=== PATIENT | female | born 1965 | race Caucasian/White ===

== ENCOUNTER 2017-10-31 17:45 | Inpatient (IN) | payer MEDICAID ==
[2017-10-31] MEDS ORDERED: Aspirin 325 mg EC Tablets PO STA (19:23)
[2017-10-31 19:37] LABS: BASO % 0.3 % (0.0-2.0); EOS % 0.5 % (0.0-4.0); HEMOGLOBIN 14.5 g/dL (11.0-16.0); LYMPH # 2.8 K/uL (1.0-4.3); LYMPH % 36.8 % (20.0-40.0); MEAN CELL VOLUME 85.1 fL (81.0-99.0); MEAN CORPUSCULAR HEMOGLOBIN 29.2 pg (27.0-31.0); MEAN CORPUSCULAR HGB CONC 34.3 g/dL (33.0-37.0); MEAN PLATELET VOLUME 8.8 fL (7.2-11.7); MONO # 0.6 K/uL (0.0-0.8); MONO % 7.4 % (0.0-10.0); NEUT # 4.1 K/uL (1.8-7.0); NRBC % 0.1 % (0.0-2.0); RBC 4.96 Mil/uL (3.80-5.20); RED CELL DISTRIBUTION WIDTH 13.3 % (11.5-14.5); WHITE BLOOD COUNT 7.5 K/uL (4.8-10.8)
[2017-10-31 19:47] LABS: INR 0.9; PROTHROMBIN TIME 10.6 SECONDS (9.7-12.2)
[2017-10-31 19:49] LABS: ALB/GLOB RATIO 1.2 (1.0-2.1); ALBUMIN 4.5 g/dL (3.5-5.0); ALT/SGPT 20 U/L (9-52); AST/SGOT 19 U/L (14-36); BLOOD UREA NITROGEN 9 mg/dL (7-17); CALCIUM 8.8 mg/dl (8.6-10.4); GFR AFRICAN-AMERICAN > 60; GFR NON-AFRICAN AMERICAN > 60; LIPASE 51 U/L (23-300)
[2017-10-31 20:01] LABS: B-TYPE NATRIURETIC PEPTIDE 35.5 pg/mL (0-900)
[2017-10-31] MEDS ORDERED: Nitroglycerin 2% Ointment Foilpak UD TOP STA (20:33)
--- NOTE | 2017-10-31 20:42 | C.PDOC ---
Time Seen by Provider: 10/31/17 18:42 Chief Complaint (Nursing): Chest Pain History Per: Patient, Family Onset/Duration Of Symptoms: Days (2-3), Intermittent Episodes Current Symptoms Are (Timing): Still Present Severity: Moderate Quality: Pressure Associated Symptoms: Nausea, Dyspnea Modifying Factors: Other Indicated Below Exacerbating Factors: Exertion Alleviating Factors: None Additional History Per: Prior Records Past Medical History Reviewed: Historical Data, Nursing Documentation, Vital Signs Vital Signs: Last Vital Signs Temp 97.5 F L 10/31/17 18:16 Pulse 74 10/31/17 18:16 Resp 20 10/31/17 18:16 BP 131/82 10/31/17 18:16 Pulse Ox 98 10/31/17 18:16 - Medical History PMH: No Chronic Diseases Surgical History: No Surg Hx Family History: States: Unknown Family Hx - Social History Hx Tobacco Use: No Hx Alcohol Use: No Hx Substance Use: No - Immunization History Hx Tetanus Toxoid Vaccination: No Hx Influenza Vaccination: No Hx Pneumococcal Vaccination: No Review Of Systems Except As Marked, All Systems Reviewed And Found Negative. Constitutional: Negative for: Fever, Weakness Cardiovascular: Positive for: Chest Pain Respiratory: Positive for: SOB with Excertion. Negative for: Hemoptysis Gastrointestinal: Negative for: Vomiting Musculoskeletal: Negative for: Neck Pain, Leg Pain Skin: Negative for: Rash Neurological: Negative for: Weakness, Numbness Physical Exam - Physical Exam Appears: Non-toxic, No Acute Distress Skin: Normal Color, Warm, Dry, No Rash Head: Atraumatic, Normacephalic Eye(s): bilateral: Normal Inspection, PERRL, EOMI Neck: Normal ROM, Supple Cardiovascular: Rhythm Regular Respiratory: Normal Breath Sounds, No Accessory Muscle Use Gastrointestinal/Abdominal: Soft Back: No CVA Tenderness Extremity: Normal ROM, No Pedal Edema, No Calf Tenderness Neurological/Psych: Oriented x3, Normal Motor, Normal Sensation ED Course And Treatment - Laboratory Results Result Diagrams: 10/31/17 19:33 10/31/17 19:33 Lab Interpretation: No Acute Changes ECG: Interpreted By Me, Viewed By Me ECG Rhythm: Sinus Rhythm ECG Interpretation: No Acute Changes Rate From EC O2 Sat by Pulse Oximetry: 98 Pulse Ox Interpretation: Normal - Radiology CXR: Interpreted by Me, Viewed By Me CXR Interpretation: Yes: Cardiomegaly Progress - Interventions Interventions:: Observation - Medications Administered Oral: Aspirin - Data Reviewed Data Reviewed: Lab, Diagnostic imaging, EKG, Old records - Patient Status Patient status: Partially improved - Continuity of Care Discussed patient case with:: Patient, Family-HIPPA compliant, ED Nurse, On- call PMD-pt unassigned - Patient Plan Patient Plan: Admission, Telemetry Disposition Discussed With : Kobi Chin Comment: He accepted pt on hospitalist service. Doctor Will See Patient In The: Hospital Counseled Patient/Family Regarding: Studies Performed, Diagnosis - Disposition Disposition: HOSPITALIZED Disposition Time: 20:42 Condition: FAIR - Clinical Impression Clinical Impression: Exertional chest pain, Cardiomegaly
[2017-10-31] MEDS ORDERED: Nitroglycerin 2% Ointment Foilpak UD TOP ONE (20:48)
[2017-10-31] MEDS ORDERED: Nitroglycerin 2% Ointment Foilpak UD TOP SCH (21:45)
[2017-10-31] MEDS ORDERED: Iodixanol 320 MG/ML 100 ML BOTTLE IV ONE (21:50)
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
--- NOTE | 2017-10-31 22:57 | CT ---
EXAM: CT Angiography Chest With Intravenous Contrast CLINICAL HISTORY: 52 years old, female; Pain; Chest pain; Type not specified; Additional info: Positive d dimer TECHNIQUE: Axial computed tomographic angiography images of the chest with intravenous contrast using pulmonary embolism protocol. All CT scans at this facility use one or more dose reduction techniques, viz.: automated exposure control; ma/kV adjustment per patient size (including targeted exams where dose is matched to indication; i.e. head); or iterative reconstruction technique. MIP reconstructed images were created and reviewed. Coronal and sagittal reformatted images were created and reviewed. CONTRAST: 100 mL of visispaque 320 administered intravenously. COMPARISON: No relevant prior studies available. FINDINGS: Pulmonary arteries: No pulmonary embolism. Aorta: No acute findings. No thoracic aortic aneurysm. Lungs: 4 mm subpleural pulmonary nodule in the right mid lung image 88 series 2. No mass. No consolidation. Pleural space: Unremarkable. No significant effusion. No pneumothorax. Heart: Unremarkable. No cardiomegaly. No significant pericardial effusion. No evidence of RV dysfunction. Bones/joints: No acute fracture. No dislocation. Soft tissues: Unremarkable. Lymph nodes: Unremarkable. No enlarged lymph nodes. IMPRESSION: 4 mm right mid lung pulmonary nodule. For low-risk patients, no follow-up is necessary. For high-risk patients (smoking history or other known risk factors) an optional chest CT at 12 months could be performed. No pulmonary embolism.
[2017-10-31 22:59] VITALS: O2SAT 96
[2017-11-01 07:29] LABS: BASO % 0.5 % (0.0-2.0); EOS % 0.4 % (0.0-4.0); HEMOGLOBIN 13.4 g/dL (11.0-16.0); LYMPH # 2.3 K/uL (1.0-4.3); LYMPH % 35.3 % (20.0-40.0); MEAN CELL VOLUME 84.8 fL (81.0-99.0); MEAN CORPUSCULAR HEMOGLOBIN 29.7 pg (27.0-31.0); MEAN PLATELET VOLUME 8.7 fL (7.2-11.7); MONO # 0.5 K/uL (0.0-0.8); MONO % 8.4 % (0.0-10.0); NEUT # 3.6 K/uL (1.8-7.0); NEUT % 55.4 % (50.0-75.0); NRBC % 0.1 % (0.0-2.0); RBC 4.52 Mil/uL (3.80-5.20); RED CELL DISTRIBUTION WIDTH 13.4 % (11.5-14.5); WHITE BLOOD COUNT 6.5 K/uL (4.8-10.8)
[2017-11-01 07:41] VITALS: BP 134/85; RESP 18; TEMP 97.9
--- NOTE | 2017-11-01 07:48 | CP.PCM.PN ---
Subjective - Date & Time of Evaluation Date of Evaluation: 11/01/17 Time of Evaluation: 07:30 - Subjective Subjective: Medicine progress note for Dr. Campa Patient seen and examined. Patient reports no chest pain at this time. Patient denies having any acute complaints at this time. Objective - Vital Signs/Intake and Output Vital Signs (last 24 hours): Temp Pulse Resp BP Pulse Ox 97.9 F 76 18 134/85 96 11/01/17 07:15 11/01/17 07:15 11/01/17 07:15 11/01/17 07:15 11/01/17 07:15 - Medications Medications: Current Medications Aspirin (Aspirin Chewable) 81 mg PO DAILY [facility] Famotidine (Pepcid) 20 mg PO DAILY [facility] Heparin Sodium (Porcine) (Heparin) 5,000 units SC Q8 [facility] Last Admin: 11/01/17 05:07 Dose: 5,000 units Lactulose (Enulose) 20 gm PO HS [facility] Last Admin: 10/31/17 22:33 Dose: Not Given Lisinopril (Zestril) 5 mg PO DAILY [facility] Nitroglycerin (Nitro-Bid 2% Oint) 1 ea TOP Q12H [facility] Last Admin: 10/31/17 22:25 Dose: Not Given Rosuvastatin Calcium (Crestor) 5 mg PO HS [facility] Last Admin: 10/31/17 22:33 Dose: 5 mg - Labs Labs: 11/01/17 07:10 10/31/17 19:33 PT 10.6 SECONDS (9.7-12.2) 10/31/17 19:33 INR 0.9 10/31/17 19:33 APTT 31 SECONDS (21-34) 10/31/17 19:33 - Constitutional Appears: No Acute Distress - Head Exam Head Exam: ATRAUMATIC, NORMOCEPHALIC - Eye Exam Eye Exam: EOMI, Normal appearance - ENT Exam ENT Exam: Mucous Membranes Moist - Respiratory Exam Respiratory Exam: Clear to Ausculation Bilateral, NORMAL BREATHING PATTERN. absent: Rales, Rhonchi, Wheezes - Cardiovascular Exam Cardiovascular Exam: REGULAR RHYTHM, +S1, +S2 - GI/Abdominal Exam GI & Abdominal Exam: Soft, Normal Bowel Sounds - Extremities Exam Extremities Exam: absent: Pedal Edema, Tenderness - Neurological Exam Neurological Exam: Alert, Awake, Oriented x3 - Psychiatric Exam Psychiatric exam: Normal Affect, Normal Mood - Skin Skin Exam: Dry, Warm Assessment and Plan - Assessment and Plan (Free Text) Plan: Chest pain Reproducible on admission Monitor on telemetry troponin negative x3 EKG: NSR @ 74bpm HgA1c unremarkable lipid panel shows elevated triglycerides 296, Total cholesterol 239, LDL 142, HDL 33 aspirin 325mg given in ED ASA 81 mg daily Nitro bid 2% oint q12h Crestor 5mg po HS Lisinopril 5mg po daily f/u echo Cardio Consulted, Dr. Tamir Fernandez, help appreciated Elevated D-Dimer D-Dimer: 244 CTA- no PE, 4mm right mid lung pulmonary module Constipation Lactulose 20mg po HS Prophylaxis Heparin 5000u sc q8h, scds Pepcid 20mg po daily Heart Healthy Diet
[2017-11-01 08:27] VITALS: PULSE 77
--- NOTE | 2017-11-01 10:26 | RAD ---
HISTORY: chest pain COMPARISON: None available. TECHNIQUE: Chest, one view. FINDINGS: Examination limited by habitus. LUNGS: No focal consolidation. Please note that chest x-ray has limited sensitivity for the detection of pulmonary masses. PLEURA: No significant pleural effusion identified. No definite pneumothorax . CARDIOVASCULAR: Cardiomegaly. Ectatic aorta. OSSEOUS STRUCTURES: Degenerative changes. VISUALIZED UPPER ABDOMEN: Elevation of the right hemidiaphragm. OTHER FINDINGS: None. IMPRESSION: Cardiomegaly. Ectatic aorta.
[2017-11-01] MEDS ORDERED: Nitroglycerin 2% Ointment Foilpak UD TOP SCH (10:45)
--- NOTE | 2017-11-01 13:05 | CP.PCM.PN ---
Subjective - Date & Time of Evaluation Date of Evaluation: 11/01/17 Time of Evaluation: 13:03 - Subjective Subjective: no chest pain. asymptomatic. Objective - Vital Signs/Intake and Output Vital Signs (last 24 hours): Temp Pulse Resp BP Pulse Ox 97.9 F 77 18 134/85 96 11/01/17 07:15 11/01/17 07:55 11/01/17 07:15 11/01/17 07:15 11/01/17 07:15 - Medications Medications: Current Medications Aspirin (Aspirin Chewable) 81 mg PO DAILY [facility] Last Admin: 11/01/17 10:20 Dose: 81 mg Famotidine (Pepcid) 20 mg PO DAILY [facility] Last Admin: 11/01/17 10:19 Dose: 20 mg Heparin Sodium (Porcine) (Heparin) 5,000 units SC Q8 [facility] Last Admin: 11/01/17 05:07 Dose: 5,000 units Lactulose (Enulose) 20 gm PO [facility] Last Admin: 10/31/17 22:33 Dose: Not Given Lisinopril (Zestril) 5 mg PO DAILY [facility] Last Admin: 11/01/17 10:19 Dose: 5 mg Nitroglycerin (Nitro-Bid 2% Oint) 1 ea TOP Q12H [facility] Last Admin: 11/01/17 10:43 Dose: 1 ea Rosuvastatin Calcium (Crestor) 5 mg PO [facility] Last Admin: 10/31/17 22:33 Dose: 5 mg - Labs Labs: 11/01/17 07:10 10/31/17 19:33 PT 10.6 SECONDS (9.7-12.2) 10/31/17 19:33 INR 0.9 10/31/17 19:33 APTT 31 SECONDS (21-34) 10/31/17 19:33 - Constitutional Appears: No Acute Distress - ENT Exam ENT Exam: Mucous Membranes Moist, Normal Exam - Neck Exam Neck Exam: Full ROM, Normal Inspection. absent: Lymphadenopathy - Respiratory Exam Respiratory Exam: Clear to Ausculation Bilateral, NORMAL BREATHING PATTERN - Cardiovascular Exam Cardiovascular Exam: REGULAR RHYTHM, +S1, +S2. absent: Murmur - GI/Abdominal Exam GI & Abdominal Exam: Soft, Normal Bowel Sounds. absent: Tenderness Assessment and Plan - Assessment and Plan (Free Text) Assessment: atypical chest pain. ekg nsr, troponin neg. Plan: cardiac stable. ok for discharge. stress test as out patient.
--- NOTE | 2017-11-01 13:50 | CP.PCM.DIS ---
<Santosh Lancaster S - Last Filed: 11/01/17 14:18> Provider - Provider Date of Admission: 10/31/17 20:43 Attending physician: Dr. Campa Consults: Cardiology: Dr. Britt Fernandez Time Spent in preparation of Discharge (in minutes): 40 Diagnosis - Discharge Diagnosis (1) Chest pain, rule out acute myocardial infarction Status: Acute Priority: High (2) Hypertension Status: Acute Priority: High (3) GERD (gastroesophageal reflux disease) Status: Suspected Priority: High (4) Hypercholesteremia Status: Acute Priority: High Hospital Course - Lab Results Lab Results: Most Recent Lab Values WBC 6.5 K/uL (4.8-10.8) 11/01/17 07:10 RBC 4.52 Mil/uL (3.80-5.20) 11/01/17 07:10 Hgb 13.4 g/dL (11.0-16.0) 11/01/17 07:10 Hct 38.3 % (34.0-47.0) 11/01/17 07:10 MCV 84.8 fL (81.0-99.0) 11/01/17 07:10 MCH 29.7 pg (27.0-31.0) 11/01/17 07:10 MCHC 35.0 g/dL (33.0-37.0) 11/01/17 07:10 RDW 13.4 % (11.5-14.5) 11/01/17 07:10 Plt Count 290 K/uL (130-400) 11/01/17 07:10 MPV 8.7 fL (7.2-11.7) 11/01/17 07:10 Neut % (Auto) 55.4 % (50.0-75.0) 11/01/17 07:10 Lymph % (Auto) 35.3 % (20.0-40.0) 11/01/17 07:10 Shannon % (Auto) 8.4 % (0.0-10.0) 11/01/17 07:10 Eos % (Auto) 0.4 % (0.0-4.0) 11/01/17 07:10 Baso % (Auto) 0.5 % (0.0-2.0) 11/01/17 07:10 Neut # (Auto) 3.6 K/uL (1.8-7.0) 11/01/17 07:10 Lymph # (Auto) 2.3 K/uL (1.0-4.3) 11/01/17 07:10 Shannon # (Auto) 0.5 K/uL (0.0-0.8) 11/01/17 07:10 Eos # (Auto) 0.0 K/uL (0.0-0.7) 11/01/17 07:10 Baso # (Auto) 0.0 K/uL (0.0-0.2) 11/01/17 07:10 PT 10.6 SECONDS (9.7-12.2) 10/31/17 19:33 INR 0.9 10/31/17 19:33 APTT 31 SECONDS (21-34) 10/31/17 19:33 D-Dimer, Quantitative 244 ng/mlDDU (0-243) H 10/31/17 19:33 Sodium 141 mmol/L (132-148) 10/31/17 19:33 Potassium 3.8 mmol/L (3.6-5.2) 10/31/17 19:33 Chloride 100 mmol/L (98-107) 10/31/17 19:33 Carbon Dioxide 27 mmol/L (22-30) 10/31/17 19:33 Anion Gap 17 (10-20) 10/31/17 19:33 BUN 9 mg/dL (7-17) 10/31/17 19:33 Creatinine 0.6 mg/dL (0.7-1.2) L 10/31/17 19:33 Est GFR ( Amer) > 60 10/31/17 19:33 Est GFR (Non-Af Amer) > 60 10/31/17 19:33 Random Glucose 79 mg/dL (65-105) 10/31/17 19:33 Hemoglobin A1c 5.4 % (4.2-6.5) 11/01/17 07:10 Calcium 8.8 mg/dl (8.6-10.4) 10/31/17 19:33 Phosphorus 4.8 mg/dL (2.5-4.5) H 11/01/17 07:09 Magnesium 2.1 mg/dL (1.6-2.3) 11/01/17 07:09 Total Bilirubin 1.1 mg/dL (0.2-1.3) 10/31/17 19:33 AST 19 U/L (14-36) 10/31/17 19:33 ALT 20 U/L (9-52) 10/31/17 19:33 Alkaline Phosphatase 80 U/L (38-126) 10/31/17 19:33 Troponin I < 0.0120 ng/mL (0.00-0.120) 11/01/17 07:09 NT-Pro-B Natriuret Pep 35.5 pg/mL (0-900) 10/31/17 19:33 Total Protein 8.3 g/dL (6.3-8.3) 10/31/17 19:33 Albumin 4.5 g/dL (3.5-5.0) 10/31/17 19:33 Globulin 3.8 gm/dL (2.2-3.9) 10/31/17 19:33 Albumin/Globulin Ratio 1.2 (1.0-2.1) 10/31/17 19:33 Triglycerides 296 mg/dL (0-149) H 11/01/17 07:09 Cholesterol 239 mg/dL (0-199) H 11/01/17 07:09 LDL Cholesterol Direct 142 mg/dL (0-129) H 11/01/17 07:09 HDL Cholesterol 33 mg/dL (30-70) 11/01/17 07:09 Lipase 51 U/L (23-300) 10/31/17 19:33 - Hospital Course Hospital Course: Initial Note: "Patient is a 52 year old female with past medical history of HTN (was told she could stop her antihypertensives 6 months ago) who presents today for left sided chest pain that started two days ago. Patient was at rest when the pain started and she describes it as a pressure which was persistent and got as bad as 10/10. Patient says she is not short of breath, but when the pain is worst it makes it difficult to take a full breath. Patient says the pain radiates to the left inner arm. Patient has no tingling, loss of sensation, or weakness in the arm. Patient also has been having some nausea, but no vomiting. Patient has been able to eat, but has had a decreased appetite. Patient also has epigastric pain and lower abdominal pain which she rates 5/10. Patient feels constipated and has not had a bowel movement in 2 days. This morning patient's chest pain increased and she had an episode where she felt dizzy and shaky. She did not fall or lose consciousness and the episode resolved on its own. Her family took her to [facility], but her blood pressure was elevated and the doctor told them she needed to be evaluated in the emergency room. Patient had an episode of chest pain about 6 months ago which she was much less than this. At this time she saw a doctor and said she had an EKG done and blood work and told she was fine. She has never had an echo or stress test." Hospital Course: Patient admitted for work up of chest pain and to rule out ACS. EKG did not show any acute ST segment changes. Three sets of cardiac enzymes were negative. On admission, patient had reproducible chest pain. There was also clinical suspicion for GERD given patient's abdominal symptoms and diet. Patient was counselled on reducing her intake of oily foods and counseled on exercise as well. Cardiology was consulted and cleared her for discharge, recommending an outpatient stress test. Preliminary reading of the echocardiogram was negative per Dr. Tamir Fernandez. This is a summary of the hospital course. For more information, refer to the medical records. Discharge Exam - Additional Findings Additional findings: - Constitutional Appears: No Acute Distress - Head Exam Head Exam: ATRAUMATIC, NORMOCEPHALIC - Eye Exam Eye Exam: EOMI, Normal appearance - ENT Exam ENT Exam: Mucous Membranes Moist - Respiratory Exam Respiratory Exam: Clear to Auscultation Bilateral, NORMAL BREATHING PATTERN. absent: Rales, Rhonchi, Wheezes - Cardiovascular Exam Cardiovascular Exam: REGULAR RHYTHM, +S1, +S2 - GI/Abdominal Exam GI & Abdominal Exam: Soft, Normal Bowel Sounds, Tenderness (epigastric) - Extremities Exam Extremities Exam: absent: Pedal Edema, Tenderness - Neurological Exam Neurological Exam: Alert, Awake, Oriented x3 - Psychiatric Exam Psychiatric exam: Normal Affect, Normal Mood - Skin Skin Exam: Dry, Warm Discharge Plan - Discharge Medications Prescriptions: Famotidine [Pepcid] 20 mg PO BID #60 tab Lisinopril [Prinivil] 10 mg PO DAILY #30 tablet Rosuvastatin Calcium [Crestor] 5 mg PO HS #30 tab - Follow Up Plan Condition: STABLE Disposition: HOME/ ROUTINE Instructions: High Blood Pressure in Adults, Chest Pain (DC), Famotidine, Lisinopril, Rosuvastatin Additional Instructions: Please take Lisinopril 10 mg once daily for the high blood pressure. Please take Rosuvastatin 5 mg once daily before bedtime for your cholesterol. Please take Pepcid 20 mg twice a day for your stomach. Please avoid taking Motrin because this can harm the stomach. If you are in pain , you can use Tylenol instead. The information for the clinic in the [facility] has been provided. Please make a follow up appointment after discharge. You may also follow up at the [facility], but make sure that you choose one clinic and keep following up in only one place. The supervisor poultry processing has recommended that the patient get an outpatient stress test. If there are any new or worsening symptoms, please go to the nearest emergency room. Referrals: [facility] at [facility] [Outside] [facility]00 [facility] [Outside] <Brandon Campa - Last Filed: 11/01/17 16:13> Provider - Provider Date of Admission: 10/31/17 20:43 Attending physician: Kobi Chin MD [facility] Course - Lab Results Lab Results: Most Recent Lab Values WBC 6.5 K/uL (4.8-10.8) 11/01/17 07:10 RBC 4.52 Mil/uL (3.80-5.20) 11/01/17 07:10 Hgb 13.4 g/dL (11.0-16.0) 11/01/17 07:10 Hct 38.3 % (34.0-47.0) 11/01/17 07:10 MCV 84.8 fL (81.0-99.0) 11/01/17 07:10 MCH 29.7 pg (27.0-31.0) 11/01/17 07:10 MCHC 35.0 g/dL (33.0-37.0) 11/01/17 07:10 RDW 13.4 % (11.5-14.5) 11/01/17 07:10 Plt Count 290 K/uL (130-400) 11/01/17 07:10 MPV 8.7 fL (7.2-11.7) 11/01/17 07:10 Neut % (Auto) 55.4 % (50.0-75.0) 11/01/17 07:10 Lymph % (Auto) 35.3 % (20.0-40.0) 11/01/17 07:10 Shannon % (Auto) 8.4 % (0.0-10.0) 11/01/17 07:10 Eos % (Auto) 0.4 % (0.0-4.0) 11/01/17 07:10 Baso % (Auto) 0.5 % (0.0-2.0) 11/01/17 07:10 Neut # (Auto) 3.6 K/uL (1.8-7.0) 11/01/17 07:10 Lymph # (Auto) 2.3 K/uL (1.0-4.3) 11/01/17 07:10 Shannon # (Auto) 0.5 K/uL (0.0-0.8) 11/01/17 07:10 Eos # (Auto) 0.0 K/uL (0.0-0.7) 11/01/17 07:10 Baso # (Auto) 0.0 K/uL (0.0-0.2) 11/01/17 07:10 PT 10.6 SECONDS (9.7-12.2) 10/31/17 19:33 INR 0.9 10/31/17 19:33 APTT 31 SECONDS (21-34) 10/31/17 19:33 D-Dimer, Quantitative 244 ng/mlDDU (0-243) H 10/31/17 19:33 Sodium 141 mmol/L (132-148) 10/31/17 19:33 Potassium 3.8 mmol/L (3.6-5.2) 10/31/17 19:33 Chloride 100 mmol/L (98-107) 10/31/17 19:33 Carbon Dioxide 27 mmol/L (22-30) 10/31/17 19:33 Anion Gap 17 (10-20) 10/31/17 19:33 BUN 9 mg/dL (7-17) 10/31/17 19:33 Creatinine 0.6 mg/dL (0.7-1.2) L 10/31/17 19:33 Est GFR ( Amer) > 60 10/31/17 19:33 Est GFR (Non-Af Amer) > 60 10/31/17 19:33 Random Glucose 79 mg/dL (65-105) 10/31/17 19:33 Hemoglobin A1c 5.4 % (4.2-6.5) 11/01/17 07:10 Calcium 8.8 mg/dl (8.6-10.4) 10/31/17 19:33 Phosphorus 4.8 mg/dL (2.5-4.5) H 11/01/17 07:09 Magnesium 2.1 mg/dL (1.6-2.3) 11/01/17 07:09 Total Bilirubin 1.1 mg/dL (0.2-1.3) 10/31/17 19:33 AST 19 U/L (14-36) 10/31/17 19:33 ALT 20 U/L (9-52) 10/31/17 19:33 Alkaline Phosphatase 80 U/L (38-126) 10/31/17 19:33 Troponin I < 0.0120 ng/mL (0.00-0.120) 11/01/17 07:09 NT-Pro-B Natriuret Pep 35.5 pg/mL (0-900) 10/31/17 19:33 Total Protein 8.3 g/dL (6.3-8.3) 10/31/17 19:33 Albumin 4.5 g/dL (3.5-5.0) 10/31/17 19:33 Globulin 3.8 gm/dL (2.2-3.9) 10/31/17 19:33 Albumin/Globulin Ratio 1.2 (1.0-2.1) 10/31/17 19:33 Triglycerides 296 mg/dL (0-149) H 11/01/17 07:09 Cholesterol 239 mg/dL (0-199) H 11/01/17 07:09 LDL Cholesterol Direct 142 mg/dL (0-129) H 11/01/17 07:09 HDL Cholesterol 33 mg/dL (30-70) 11/01/17 07:09 Lipase 51 U/L (23-300) 10/31/17 19:33 Urine Color Yellow (YELLOW) 11/01/17 14:59 Urine Clarity Clear (Clear) 11/01/17 14:59 Urine pH 6.0 (5.0-8.0) 11/01/17 14:59 Ur Specific [place] 1.015 (1.003-1.030) 11/01/17 14:59 Urine Protein Negative mg/dL (NEGATIVE) 11/01/17 14:59 Urine Glucose (UA) Normal mg/dL (Normal) 11/01/17 14:59 Urine Ketones Negative mg/dL (NEGATIVE) 11/01/17 14:59 Urine Blood 1+ (NEGATIVE) H 11/01/17 14:59 Urine Nitrate Negative (NEGATIVE) 11/01/17 14:59 Urine Bilirubin Negative (NEGATIVE) 11/01/17 14:59 Urine Urobilinogen Normal mg/dL (0.2-1.0) 11/01/17 14:59 Ur Leukocyte Esterase Neg [place]/uL (Negative) 11/01/17 14:59 Urine WBC (Auto) < 1 /hpf (0-5) 11/01/17 14:59 Urine RBC (Auto) 1 /hpf (0-3) 11/01/17 14:59 Ur Squamous Epith Cells 1 /hpf (0-5) 11/01/17 14:59 Attending/Attestation - Attestation I have personally seen and examined this patient.: Yes I have fully participated in the care of the patient.: Yes I have reviewed all pertinent clinical information, including history, physical exam and plan: Yes Notes (Text): Patient was seen and examined this morning. She is not in pain.No sob. Medication,blood reports and follow ups discussed with her and her son at bedside. Patient will follow medical clinic as an out patient I spoke to supervisor poultry processing Dr Fernandez. Her troponin is negatvie,normal ekg and normal echo. he recommend to discharge home and follow as an out patient. I agree with the resident's documentation os the plan and assessment 11/01/17 16:10
[2017-11-01 15:09] LABS: SQUAMOUS EPITHIAL 1 /hpf (0-5); URINE BILIRUBIN NEGATIVE (NEGATIVE); URINE BLOOD 1+ (NEGATIVE); URINE CLARITY Clear (Clear); URINE COLOR Yellow (YELLOW); URINE GLUCOSE (UA) NORMAL (Normal); URINE LEUKOCYTE ESTERASE NEG Leu/uL (Negative); URINE PROTEIN NEGATIVE (NEGATIVE); URINE UROBILINOGEN NORMAL mg/dL (0.2-1.0)
--- NOTE | 2017-11-01 20:10 | CARD ---
APPROVED REPORT EXAM: Two-dimensional and M-mode echocardiogram with Doppler and color Doppler. Other Information Quality : GoodRhythm : INDICATION ICD: 429.3 Cardiomegaly Chest Pain RISK FACTORS Hypertension 2D DIMENSIONS IVSd1.0 (0.7-1.1cm)LVDd3.9 (3.9-5.9cm) PWd1.1 (0.7-1.1cm)LVDs2.9 (2.5-4.0cm) FS (%) 26.0 %LVEF (%)60.0 (>50%) M-Mode DIMENSIONS RVDd1.89 (2.1-3.2cm)Left Atrium (MM)3.20 (2.5-4.0cm) IVSd1.17 (0.7-1.1cm)Aortic Root2.65 (2.2-3.7cm) LVDd4.88 (4.0-5.6cm)Aortic Cusp Exc.1.94 (1.5-2.0cm) PWd1.24 (0.7-1.1cm)FS (%) 48 % LVDs2.54 (2.0-3.8cm) Aortic Valve AI P 1/2 [id number] Mitral Valve MV E Zqishgjn08.7cm/sMV A Tbovwsve309.2cm/sE/A ratio0.6 TDI E/Lateral E'0.0E/Medial E'0.0 Tricuspid Valve TR Peak [id number]/sTR Peak [id number] LEFT VENTRICLE The left ventricle is normal size. There is normal left ventricular wall thickness. The left ventricular function is normal. The left ventricular ejection fraction is within the normal range. No regional wall motion abnormalities noted. No left ventricle thrombus noted on this study. There is no ventricular septal defect visualized. There is no left ventricular aneurysm. There is no mass noted in the left ventricle. RIGHT VENTRICLE The right ventricle is normal size. There is normal right ventricular wall thickness. The right ventricular systolic function is normal. ATRIA The left atrium size is normal. The right atrium size is normal. The interatrial septum is intact with no evidence for an atrial septal defect. AORTIC VALVE The aortic valve is normal in structure and function. There is mild aortic regurgitation. There is no aortic valvular stenosis. There is no aortic valvular vegetation. MITRAL VALVE The mitral valve is normal in structure and function. There is no evidence of mitral valve prolapse. There is no mitral valve stenosis. There is no mitral valve regurgitation noted. TRICUSPID VALVE The tricuspid valve is normal in structure and function. There is no tricuspid valve regurgitation noted. There is no tricuspid valve prolapse or vegetation. There is no tricuspid valve stenosis. PULMONIC VALVE The pulmonary valve is normal in structure and function. There is no pulmonic valvular regurgitation. There is no pulmonic valvular stenosis. GREAT VESSELS The aortic root is normal in size. The ascending aorta is normal in size. The pulmonary artery is normal. The IVC is normal in size and collapses >50% with inspiration. PERICARDIAL EFFUSION The pericardium appears normal. There is no pleural effusion. <Conclusion> The left ventricular function is normal. The left ventricular ejection fraction is within the normal range. No regional wall motion abnormalities noted.
--- NOTE | 2017-11-01 23:02 | CON ---
DATE: CARDIOLOGY CONSULTATION HISTORY OF PRESENT ILLNESS: This is a 52-year-old female who came to the emergency room because of left-sided chest pain associated with radiation to the left arm. The patient also has increase in chest pain during respiration. No history of cough. No history of nausea or vomiting. No diaphoresis. The patient complained of constipation for the last two days. The patient has generalized weakness. PAST MEDICAL HISTORY: History of hypertension. The patient is not taking any medications at present. REVIEW OF SYSTEMS: CARDIOVASCULAR SYSTEM: Positive for atypical chest pain. RESPIRATORY SYSTEM: Negative for shortness of breath. GASTROINTESTINAL SYSTEM: Positive for mild abdominal pain and constipation. CENTRAL NERVOUS SYSTEM: No focal neurological complaints offered. No edema of the legs. FAMILY HISTORY: No known inherited diseases. SOCIAL HISTORY: Nonsmoker. Nonalcoholic. No IVDA. ALLERGIES: NO KNOWN ALLERGY. MEDICATION: The patient is on ibuprofen p.r.n. PHYSICAL EXAMINATION: GENERAL: This is a 52-year-old [place] female, awake, comfortable. VITAL SIGNS: Temperature 97.5, pulse 73, respirations 18, blood pressure 150/71 mmHg, pulse ox is 90% on room air. HEENT: Normal. JVP is flat. Carotids, no bruits. LUNGS: No rales. No wheezing. HEART: S1 and S2 normal. No gallop. No murmur. ABDOMEN: Soft, nontender. No organomegaly. COMPUTER APPLICATIONS INSTRUCTOR: No focal neurological deficit. No edema of the leg. On admission, EKG is normal sinus rhythm. No acute ST-T changes. Chest x-ray shows cardiomegaly. Troponin is negative x3. IMPRESSION: Atypical chest pain. Hypertension. Elevated troponin. PLAN: Suggest, agree with the present management. We will continue all medications. Echocardiogram. If echocardiogram is negative, the patient can be discharged home, and I can do stress test as an outpatient. Britt Fernandez MD
--- NOTE | 2017-11-02 12:26 | CARD ---
APPROVED REPORT EKG Measurement Heart [id number] <Conclusion> Normal sinus rhythm Normal ECG
== END 2017-11-01 14:50 | disposition home or self-care (01) | DRG 313 ==
LOC: C.ER 17:45 → C.9E 20:43 → C.5S 22:14
PROVIDERS: ADMIT Family Medicine; ATTEND Family Medicine
DX: R07.89 Other chest pain (principal); I11.9 Hypertensive heart disease without heart failure; E78.00 Pure hypercholesterolemia, unspecified; I51.7 Cardiomegaly; K21.9 Gastro-esophageal reflux disease without esophagitis; K59.00 Constipation, unspecified; R79.1 Abnormal coagulation profile; Z79.82 Long term (current) use of aspirin